=== PATIENT | male | born 1950 | race Caucasian/White ===

== ENCOUNTER 2017-02-18 14:12 | Inpatient (IN) | payer OTHER ==
[~2017-02-18] VITALS: Ht 172.7 cm; Wt 127.9 kg
[2017-02-18 15:23] LABS: BASOPHIL % 0.4 % (0-2); PLATELET COUNT 306 x10^3mcL (130-400)
[2017-02-18 15:34] LABS: CALCIUM 8.7 mg/dL (8.5-10.1); CARBON DIOXIDE 24.2 mmol/L (21-32); CHLORIDE SERUM 102 mmol/L (98-107); CREATININE SERUM 1.1 mg/dL (0.7-1.3); GFR1 > 60 mL/min; GLUCOSE SERUM 267 mg/dL (74-106); POTASSIUM SERUM 4.2 mmol/L (3.5-5.1); SODIUM SERUM 139 mmol/L (136-145)
[2017-02-18 15:42] LABS: ALBUMIN 3.8 g/dL (3.4-5.0); ALKALINE PHOSPHATASE 114 U/L (46-116); ALT/SGPT 25 U/L (16-63); AMYLASE 44 U/L (25-115); AST/SGOT 20 U/L (15-37); BILIRUBIN TOTAL 1.23 mg/dL (0.20-1.00); CHOLESTEROL 189 mg/dL (<200); HDL CHOLESTEROL 35 mg/dL (40-60); LIPASE 104 IU/L (73-393); MAGNESIUM 2.2 mg/dL (1.8-2.4); T4(THYROXINE) 6.1 ug/dL (4.7-13.3); TOTAL PROTEIN, SERUM 7.2 g/dL (6.4-8.2)
[2017-02-18 15:44] LABS: RED CELL DISTRIBUTION WIDTH 16.5 % (11.5-14.5)
[2017-02-18 15:51] LABS: UA SPECIFIC GRAVITY 1.015 (1.005-1.035); microscopic required? YES; urine erythrocyte NEGATIVE (NEGATIVE)
[2017-02-18 16:18] LABS: AMPHETAMINE QUAL UR NONE DETECTED (NEG <=1000)
[2017-02-18 16:52] VITALS: BP 131/70
[2017-02-18 17:29] VITALS: BP 131/70
[2017-02-18 17:30] VITALS: BP 131/70
[2017-02-18 20:33] VITALS: BP 115/71
[2017-02-19 05:05] VITALS: BP 109/72
[2017-02-19 06:44] LABS: BASOPHIL % 1.3 % (0-2)
[2017-02-19 07:26] LABS: CALCIUM 9.2 mg/dL (8.5-10.1); CARBON DIOXIDE 24.5 mmol/L (21-32); CHLORIDE SERUM 102 mmol/L (98-107); CREATININE SERUM 0.8 mg/dL (0.7-1.3); GFR1 > 60 mL/min; GLUCOSE SERUM 74 mg/dL (74-106); MAGNESIUM 2.2 mg/dL (1.8-2.4); PHOSPHOROUS 3.4 mg/dL (2.5-4.9); POTASSIUM SERUM 3.5 mmol/L (3.5-5.1); SODIUM SERUM 140 mmol/L (136-145)
[2017-02-19 08:23] LABS: PLATELET COUNT 235 x10^3mcL (130-400); RED CELL DISTRIBUTION WIDTH 15.1 % (11.5-14.5)
== END 2017-02-19 08:02 | disposition left against medical advice (07) | DRG 291 ==
LOC: ED 14:12 → DU 15:22
PROVIDERS: Emergency Medicine; ADMIT Family Medicine
DX: I50.43 Acute on chronic combined systolic (congestive) and diastolic (congestive) heart failure (principal); J96.00 Acute respiratory failure, unspecified whether with hypoxia or hypercapnia; N17.0 Acute kidney failure with tubular necrosis; E87.2 Acidosis; Z68.42 Body mass index [BMI] 45.0-49.9, adult; I16.0 Hypertensive urgency; I10 Essential (primary) hypertension; R73.03 Prediabetes; E83.39 Other disorders of phosphorus metabolism; E80.6 Other disorders of bilirubin metabolism; Z53.29 Procedure and treatment not carried out because of patient's decision for other reasons; Z87.891 Personal history of nicotine dependence
CPT/HCPCS: 36600; 82962; 83880; 87804; 94150; G0480; J1940; J7620